=== PATIENT | female | born 1950 | race Caucasian/White ===

== ENCOUNTER 2016-05-25 02:16 | Inpatient (IN) | payer OTHER, MEDICARE ==
[~2016-05-25] VITALS: Ht 167.6 cm; Wt 79.4 kg
[~2016-05-25 02:16] MED LIST: GABAPENTIN600 M1 PO; VICODIN 5-3001 EACH PO
[2016-05-25] MEDS ORDERED: MULTIVITAMINS1 EAC8 PO (06:44)
--- NOTE | 2016-05-25 08:39 | RADIOLOGY REPORT ---
EXAMINATION: XR LUMBAR SPINE CLINICAL INFORMATION: Pain COMPARISON: CT lumbar spine dated 04/30/2016 TECHNIQUE: Lateral view only FINDINGS: Normal overall alignment. Radiodense marker projecting at the spinous process L3 vertebra. Vertebral body heights are preserved. Multilevel degenerative changes with osteophyte formations and facet arthropathy. Decrease intervertebral disc space noted at T12-L1, L2-L3, L4-L5 and L5-S1 levels. Vacuum degeneration noted at L4-L5 and L5-S1 level. Evaluation of the superior endplate S1 vertebra is limited due to underlying bony osteopenia. Moderate facet arthropathy with foraminal narrowing especially evident at L4-L5 and L5-S1 level. IMPRESSION: 1. Linear radiodense marker pointing to the spinous process of L3 vertebra. 2. Multilevel degenerative changes have remained predominantly stable compared to the prior CT scan. It especially evident at L4-L5 and L5-S1 levels with vacuum degeneration and mild foraminal narrowing. 2. There is limited evaluation of the S1 vertebra due to underlying bony osteopenia.
--- NOTE | 2016-05-25 09:05 | RADIOLOGY REPORT ---
EXAMINATION: XR LUMBAR SPINE CLINICAL INFORMATION: Intraoperative COMPARISON: X-ray lumbar spine performed at 8:18 AM TECHNIQUE: Crosstable lateral view FINDINGS: Metallic probe with the tip projecting upon the posterior elements L3 vertebra at the level of L3-L4 intervertebral disc space. Additional metallic calipers with the tip projecting upon the posterior elements L4 vertebra at the level of L4-L5 intervertebral disc space. Metallic retractors also projecting upon the posterior tissues. IMPRESSION: Metallic instruments with the tip projecting upon the posterior elements L3-L4 and L4-L5 levels.
--- NOTE | 2016-05-25 10:31 | Patient Discharge Instructions ---
Discharge Instructions General Discharge Information You were seen/treated for: Low back pain with radiculopathy You had these procedures: Transforaminal lumbar intervertebral body fusion lumbar level four through sacral level I. Lumbar laminectomy L2-3. Watch for these problems: Increasing pain despite the use of pain medication, redness, warmth, or swelling around incision. Drainage of any type from incision. Inability to bear weight on bilateral legs. Loss of sensation to bilateral legs. Inability to urinate or move bowels. Persistent nausea and vomiting, Fever greater than 101.5. Do not soak the wound: Yes No bath, but you may shower: Yes Other wound care: Keep wound clean and dry. Daily dry dressing changes Special Instructions: Where lumbar support brace at all times while walking around. Diet Continue normal diet: Yes Recommended Diet: Regular Additional DIET Information: Advance diet as tolerated Activity Full Activity/No Limits: No Activity Self Limited: Yes Pounds, do NOT lift more than: 5 Activity Limited to: Weight bear as tolerated Additional ACTIVITY Info: No bending or twisting at waist. Where lumbar support at all times while mobilizing. Acute Coronary Syndrome Inclusion Criteria At DC or during hospital stay patient has or had the following: ACS DIAGNOSIS No Discharge Core Measures Meds if any: Prescribed or Continued at Discharge Meds if any: NOT Prescribed or Continued at Discharge Congestive Heart Failure Inclusion Criteria At DC or during hospital stay patient has or had the following: CHF DIAGNOSIS No Discharge Core Measures Meds if any: Prescribed or Continued at Discharge Meds if any: NOT Prescribed or Continued at Discharge Cerebrovascular accident Inclusion Criteria At DC or during hospital stay patient has or had the following: CVA/TIA Diagnosis No Discharge Core Measures Meds if any: Prescribed or Continued at Discharge Meds if any: NOT Prescribed or Continued at Discharge Venous thromboembolism Inclusion Criteria VTE Diagnosis No VTE Type NONE VTE Confirmed by (Test) NONE Discharge Core Measures - Per Current guidelines, there needs to be overlap - treatment for the first 5 days of Warfarin therapy. - If discharged on Warfarin prior to 5 days of - overlap therapy, the patient will need to be - assessed for post discharge needs including - *Post discharge parental anticoagulation - *Warfarin and/or parental anticoagulation education - *Follow up date to check INR post discharge At least 5 days overlap therapy as Inpatient No Meds if any: Prescribed or Continued at Discharge Note: Overlap Therapy is Warfarin and Anticoagulant Meds if any: NOT Prescribed or Continued at Discharge
--- NOTE | 2016-05-25 10:35 | Surgical Discharge Summary ---
Visit Information Visit Dates Admission Date: 05/25/16 Discharge Date: 05/28/2016 History of Present Illness Chief Complaint: Back pain with radiculopathy Surgical History Pertinent Surgical History: non-contributory Review of Systems: See H&P Hospital Course Course Attending Physician: MARLEE AL MD Primary Care Physician: ADALGISA ADAMSONMARLEE [facility] Course: Joslyn was admitted to the hospital on 05/25/2016 for a transforaminal intravertebral lumbar fusion L4 through S1 with a lumbar laminectomy at L2-3. She tolerated the procedure well. She was transferred to a general surgical floor. Her diet was advanced and tolerated. Her vital signs were stable and within normal limits. She voided spontaneously. Her pain was well controlled with oral pain medications. Her neurovascular status remained intact. She was evaluated and treated by physical therapy. Her CHRISTY was removed on 05/28 and her antibiotics were discontinued on that day. She sufferred from post op nausea on pod 2 requiring zofran and tigan which eventually resolved. A cardiac workup on that day including EKG and troponin was negative. She was cleared by PT for discharge to home with services. Allergies: Coded Allergies: No Known Allergies (05/22/16) Significant Procedures: See operative report Disposition Summary Disposition Principal Diagnosis: Spinal stenosis L2-3, degenerative disc disease, spondylosis levels L4 through S1. Additional Diagnosis: None Discharge Disposition: home health services Discharge Instructions General Discharge Information Code Status: Full Code Patient's Diet: Regular, advance as tolerated Patient's Activity: Weight-bear as tolerated on bilateral lower extremities. No bending or twisting at the waist. Lumbar support to be worn at all times while ambulating. Follow-Up Instructions/Appts: Please call or contact Dr. Potts's office to arrange and/or confirm your follow-up appointment. She would like for you to be seen in her office in 1 week from date of surgery. Wear brace at all time while out of bed. Medications at Discharge Discharge Medications: Continue taking these medications: Gabapentin (Gabapentin) 600 MG TABLET 1 Tablet ORAL THREE TIMES DAILY Comments: LAST GIVEN: 05/28/16 2 PM Hydrocodone/Acetaminophen (Vicodin 5-300 MG Tablet) 5 MG-300 MG TABLET 1 Tablet ORAL EVERY 4-6 HOURS as needed for PAIN Multivitamin (Multivitamins) 1 EACH CAPSULE 1 Tablet ORAL DAILY Comments: NOT GIVEN Copies To: MIKAELA ADAMSON,MARLEE Pedro
--- NOTE | 2016-05-25 12:56 | Operative Report ---
Operative/Inv Procedure Report Surgery Date: 05/25/16 Name of Procedure: L2-3 laminectomies bilateral. L4 5 L5-S1 complete laminectomies, complete foraminotomies, osteotomies. L4 5 TLIF, L5-S1 TLIF. Insertion of L4 5 10 x 28 mm tritanium cage. Insertion of L5-S1 10 x 28 mm tritanium cage. L4 5 L5-S1 posterior lateral arthrodesis with autologous bone graft. L4 5 L5-S1 posterior lateral segmental instrumentation utilizing naida titanium stereotactically. Pre-Operative Diagnosis: Lumbar stenosis degenerative lumbar disc disease Post-Operative Diagnosis: Same Estimated Blood Loss: 450cc Surgeon/Hardness Tester: CARMINE CONNOR MD and MARLEE AL MD Anesthesia: general endotracheal tube Operative/Procedure Note Note: Patient was brought to the operating room and after undergoing endotracheal intubation, catheterization Venodyne's were placed for both lower extremities. She was placed on a Jose Alberto frame flat all bony prominences well-padded. The back was washed with alcohol and Betadine x-ray was used for localization and it was reporting a ChloraPrep solution draped in usual sterile fashion. An incision was made from the L2 vertebra down through the S1 and developed down through the underlying subcutaneous teeniest tissues. All of the facet joints bilaterally. This point x-ray was used for confirmation. At the L2-3 working with a Masonic's bone scalpel the lamina was performed by doing bilateral hemilaminectomies and connected them in the midline, leaving the interspinous and supraspinous ligaments intact and the spinous process intact. Processes was undermined such that the laminectomy was bilateral and wide. At this point attention was turned to the L4 5 S1 decompression by performing with the Masonic 's bone scalpel, laminectomies inferior L4 bilaterally L5 completely and then bilateral foraminotomies and osteotomies. The foramina were cleared away exposing the underlying nerve roots freely. Bone was harvested and morselized for later usage in the arthrodesis. At this point working with 11 blade and the L4 5 and the L5-S1 disc space with and was entered. The discs were now removed with a combination of straight and curved rongeurs and straight and curved curettes. The cartilaginous endplates were now removed both surfaces. The bony endplates were partially decorticated. At the L4 5 level bone graft was packed into the interspace at the L5-S1 level bone was packed into the interspace as well. A 10 x 28 mm titanium cage was centrally packed with autologous bone graft and gently tapped across the midline at the L4 5 level. At the L5-S1 level similarly a cage was placed ileu-ec-ooelt 10 x 28 mm, tRitanium, and placed across the midline. Cage was centrally packed with autologous bone graft. Copious amounts of bacitracin irrigation was now used. The transverse processes at the L4-L5 and the ala of S1 were now cleared of all muscular attachments and decorticated. Bone graft was placed over the decorticated surfaces bilaterally. A stereotactic post was placed in the right iliac crest and the stereotactic coordinates were now obtained. The pedicle screws were now placed under stereotactic guidance. L4 screws were 6.5 mm diameter by 45MM naida titanium screws all throughout. The L5 screw 6.5 x 40 mm and the S1 screw 6.5 x 35 mm. Screws were stimulated and found to stimulate above 40 mA. This point still rods were placed and connected to the polyaxial screws under compression. The wound was copiously irrigated with bacitracin irrigation. Vancomycin powder was placed into the wound. A drain was placed and removed through separate stab incision superiorly. The paraspinal muscles and fascia were reapproximated utilizing interrupted 0 Vicryls. 2-0 Vicryl subcutaneous teeniest tissues and eugene for the skin. Patient was taken With the recovery room having tolerated procedure well
--- NOTE | 2016-05-25 13:31 | Operative Report ---
Operative/Inv Procedure Report Surgery Date: 05/25/16 Name of Procedure: 1. Bilateral L2-3 decompressive laminotomies 2. Bilateral L4, L5 pars osteotomies 3. L4 5, L5-S1 far lateral discectomies 4. L4 5, L5-S1 TLIF with Clem tritanium interbody cages, autograft, iliac crest bone marrow aspirate 5. Segmental posterior lateral arthrodesis L4-S1 with Maxwell Jennifer 3 pedicle screws and rods, autograft, iliac crest bone marrow aspirate 6. Right posterior iliac crest bone marrow aspirate 7. O arm neuro navigation Pre-Operative Diagnosis: 1. L2-3 stenosis 2. L4 5, L5-S1 advanced degenerative disc disease, spondylosis, high-grade foraminal stenosis 3. History of previous left L4 5, L5-S1 laminectomies Post-Operative Diagnosis: Same Estimated Blood Loss: 1000cc Surgeon/Magazine Journalist: MIKAELA ADAMSON,Jose D Alexander M.D. Anesthesia: general endotracheal tube Monitors: Neurophysiologic monitoring IV Fluids: 3500 mL IV fluids, 550 mL Cell Saver Implants: Maxwell Urine Output: 800 mL via Gonzalez Drains: Medium CHRISTY Specimens: L4 5, L5-S1 disc material Complications: None Condition: Stable with improved distal right S1 sensory latencies at and of case compared with preop baseline Operative Indication: Patient is a 58-year-old woman with a protracted history of bilateral lower extremity pain. Status post previous laminectomies in the past and most recently has had intractable right L5 radicular symptoms despite prolonged conservative treatment. Judging shows a moderate to early severe central stenosis at L2-3 secondary to hypertrophic facet and ligamentous changes. At L4 5 and L5-S1 she has postoperative changes, advanced degenerative disc disease with severe lateral recess and foraminal stenosis which is prominent bilaterally at L4 5 on the right at L5-S1. At L5-S1, patient is noted to have a significant right S1 instrument at the level of the neural foramen. She now presents for operative decompression as well as stabilization from L4 to S1 because of the need for total facetectomies. Operative/Procedure Note Note: Patient was taken to the operating room. After appropriate patient identification, neurophysiologic monitoring leads were placed and baseline recordings obtained. Patient underwent the smooth induction of general endotracheal anesthesia without incident. With tube secured, Gonzalez catheter was sterilely inserted. DVT prophylaxis utilized throughout the case. Patient given 2 g IV Preoperative Prophylaxis. Patient then carefully turned to the prone position on the Jose Alberto table taking care to ensure all pressure points well-padded. Lumbar region low back was widely prepped and draped usual sterile fashion using povidone solution. The previous skin incision was appreciated. A vertical midline skin incision was marked and infiltrated with local anesthetic. Localizing x-ray was obtained officially in place and confirmed the level of L3 4 in the middle of our planned incision. Skin incision made with a 10 blade knife. Dissection carried down with the Bovie to the lumbodorsal fascia. Fascia incised in the midline and a subperiosteal dissection lumbar paraspinal muscles performed bilaterally exposing spinous processes lamina and facet joints from L2 to the sacrum. Troy 4 elevator placed under the presumed L3 lamina and intraoperative lateral x-ray obtained and confirmed this to be at the level of L3 4. With correct levels verified, we then proceeded to expose the transverse processes of L4, L5, sacral alar bilaterally which were decorticated with a high-speed drill. Care was taken to maintain the facet joint capsules of L2-3 and L3 4. We focused our attention first L2-3. Using the bone scalpel, bilateral L2-3 laminectomies were performed medial facetectomies. Underlying ligamentum flavum was carefully elevated and strip with Kerrison rongeurs. We worked under the spinous process across the midline to decompress the lateral recesses bilaterally carefully maintaining the spinous processes intact and therefore all of the attaching ligaments. Once the decompression at this level was accomplished, a pledget of thrombin-soaked Gelfoam was used to cover the dura and we focused our attention to L4 5 and L5-S1. First, through a small stab incision over the right posterior iliac crest, 15 mL of iliac crest bone marrow aspirate was obtained through a Jamshidi needle and to add to the decompression autograft. At the lower levels, bilateral pars osteotomies of L4 and L5 were performed with the bone scalpel. Complete facetectomies were completed using the bone scalpel and Kerrison rongeurs skeletonizing the pedicles of L4, L5, and S1 bilaterally. Marked hypertrophy of the facet joints was noted to tickly on the patient's more symptomatically right side and especially at L5-S1. The exiting and traversing roots of L4-L5 and S1 were widely decompressed and complete foraminotomies were performed bilaterally with particular attention to the patient's most symptomatically right side. All bone was saved, morcellated, and passed off to the back table and added to the iliac crest bone marrow aspirate. With the decompression completed, we then focused our attention to the interbody arthrodesis. Working at L4 5 from the patient's right side, the dural sac was gently mobilized to the midline. A cuff of venous epidural tissue was coagulated and divided. An annulotomy was performed with an 11 blade knife. Discectomy was completed with small straight and angled curettes and pituitary rongeurs, disc space sharon and rasps until all the cartilaginous endplate was removed. After appropriate trials, a by 28 x 6 lordotic tritanium cage was selected. Morcellated autograft was packed into the anterior disc space. The cage was filled with autograft and gently impacted into the L4 5 disc space under direct observation and countersunk. With the L4 5 cage in position, we then focused our attention to L5-S1. At this level, we worked from the patient's left side given significant collapse of the disc on the right. Ashen and with the dura protected, discectomy was performed at L5-S1 with the disc space sharon and rasps until all the cartilaginous endplate was removed. After appropriate trials, a second 10 x 28 x 60 lordotic Clem tritanium cage was selected, filled with morcellated autograft. Autograft was also packed into the anterior disc space. The cage was then impacted into L5-S1 and countersunk by approximately 2 mm and its position confirmed visually noted to be excellent. With the cages in position, we then proceeded with a posterior lateral arthrodesis and placement of the pedicle screw and jennifer its rotation. The O arm was brought into play. Reference AP and lateral x-rays were obtained followed by a spin. Reformats were completed and confirmed. Oozing the O arm guidance, the entry points for pedicle screws at L4, L5, and S1 were selected at the junction of the pars transverse process and facet. Budget Examiner holes were drilled. The pedicles were traversed with a gearshift. The holes were sounded with a ball-tipped probe, tapped, resounded and screws placed. At L4, 6.5 x 45 mm screws were placed bilaterally, at L5, 6.5 x 40 mm screws bilaterally and at S1, 6.5 x 35 mm screws placed bilaterally at once all screws were in position, they were stimulated with thresholds greater than 30 mA at all 6 locations. The O arm was then brought back into play and a second spin obtained and confirmed excellent position of all the instrumentation and a wide decompression.. The morcellated autograft from the decompression was packed over the transverse processes from L4 to the sacral alar bilaterally. 60 mm rods were top loaded into the screws and locking caps placed. The screws were finally tightened with an antitorque device. The wound was copiously irrigated with the sterile saline. 1 g of IV vancomycin powder was used to coat all of the cut issue surfaces. 10 mL of long-acting local anesthetic was infiltrated into the paraspinal muscle and wound closure was begun. Medium CHRISTY drain placed into the wound and secured to the skin with a 2-0 nylon suture. The deep muscle was reapproximated interrupted 0 Vicryl suture. The fascia was closed with interrupted 0 Vicryl suture. Subcutaneous tissue was irrigated and closed in layers with interrupted 2-0 Vicryl suture and the skin was closed with eugene. The wounds clean and dried. Bacitracin and sterile occlusive dressing was placed. A small stab incision at the right hip was closed with interrupted 2-0 Vicryl in subcutaneous tissue and eugene in the skin and a clean dry dressing placed. Patient was returned to the supine position, awakened extubated and taken to PACU in stable condition. She was noted to be moving all 4 extremities at the completion of the case. All sponge, needle, and instrument counts were correct at the completion of the procedure 3. Neurophysiologic monitoring was improved at the end of the case compared to preop baseline.
--- NOTE | 2016-05-25 14:31 | RADIOLOGY REPORT ---
EXAMINATION: XR LUMBOSACRAL SPINE CLINICAL INFORMATION: L2-L3, L4-L5, L5-S1 fusion. COMPARISON: Lumbar spine films dated 05/25/2016. TECHNIQUE: 4 views of the lumbosacral spine were obtained. Fluoroscopic images were obtained and 2 forearm specimens were performed and are archived in PACS. FLUOROSCOPY TIME: 5.24 seconds. FINDINGS: Serial images demonstrate performance of posterior spinal decompression and fusion extending from the nipple for 5 to the L5-S1 level with intervertebral disc spacer placement. Alignment appears near-anatomic on the images submitted. Please refer to operative notes for further detail. IMPRESSION: Posterior spinal decompression and fusion in lower lumbar spine near anatomic alignment seen.
--- NOTE | 2016-05-25 15:24 | PN- Neurosurgical ---
Subjective Subjective: Patient reporting discomfort but state she feels better if she is able to move legs. Denies chest pain, shortness of breath and difficulty breathing. Denies nausea and vomitting. Has not been mobilized. Has dubon catheter in place. 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 Motor 5/5 in plantar and dorsi flexion. Skin warm and well perfused. DP Pulses palpable, ALPS in place. Bilateral calves soft. Surgical site: Dressing dry and intact. Drain holding suction, approximately 200 cc of sanguinous output postoperatively. Assessment/Plan Assessment/Plan This is a 66 year old female, POD 0, s/p Lum Rick L2-3, TLIF L4-5 for spinal stenosis and degenerative disc disease. -dPCA for pain -Continue IV fluids -Advance diet as tolerated -Ancef for abx ppx q8hr while drain in place -OOB tomorrow with PT, lumbar brace on while ambulating -Hep SQ q8 to start tomorrow -Toradol 15 q8 okay prn -Valium as needed for spasm -Will d/w Dr. Desir Core Measures/Miscellaneous Venous Thromboembolism VTE Risk Factors: Age > 40 VTE Contraindications: No Contraindications VTE Diagnosis: No Beta Kennedy Is Beta Kennedy a Home Med? No Antibiotics Is Patient on Antibiotics? Yes If Yes: prophylaxis
[2016-05-25 16:20] VITALS: BP 116/64
[2016-05-25 18:01] VITALS: BP 124/80
[2016-05-25 18:20] VITALS: BP 124/80
[2016-05-25 20:00] VITALS: BP 124/80
[2016-05-25 20:05] VITALS: BP 124/78
[2016-05-25 22:00] VITALS: BP 124/70; BP 124/80
[2016-05-26] VITALS (10 sets, daily range): BP systolic 112–120; BP diastolic 60–80
--- NOTE | 2016-05-26 07:19 | PN- Neurosurgical ---
Subjective Subjective: Pt c/o incisional LBP Objective Vital Signs and I&Os Vital Signs Date Time Temp Pulse Resp B/P Pulse O2 O2 Flow FiO2 Ox Delivery Rate 05/26 0616 98.4 92 20 120/62 94 Room Air 05/26 0416 99.0 94 20 114/66 94 Room Air 05/26 0400 99.0 94 18 114/66 05/26 0220 99.0 95 20 112/66 94 Room Air 05/26 0200 99.0 95 18 112/66 05/26 0005 98.6 93 20 120/70 94 Room Air 05/26 0000 98.6 93 18 120/70 05/25 2200 98.7 94 18 124/80 05/25 2200 98.7 91 20 124/70 99 05/25 2004 98.7 94 18 124/78 98 05/26 1999 98.7 94 18 124/80 05/25 1820 97.9 91 18 124/80 05/25 1801 97.9 91 18 124/80 97 Nasal Cannula 05/25 1620 98.2 94 18 116/64 05/25 1620 98 Nasal 2.0L Cannula 05/25 1620 98.1 94 18 64 98 Nasal 2.0L Cannula Intake & Output 05/26 0800 05/26 0000 05/25 1600 05/25 0800 05/25 0000 05/24 1600 Intake Total 640 200 Output Total 205 605 Balance 435 -405 Intake, IV 640 Intake, Oral 200 Output, 205 180 Drainage Output, Urine 425 Patient 79.379 kg Weight Physical Exam: Pt awake and alert AF, VSS Drain with 180cc last shift serosanguinous incision is c,d,i flat neuro exam bilat LE intact motor and sensory sl bilat edema of feet, no calf tenderness using IS well abd soft and NT, nadeem clears Current Medications: Current Medications Sig/Tesha Start time Last Medication Dose Route Stop Time Status Admin Acetaminophen 650 MG Q4P PRN 05/25 1415 AC PO Bisacodyl 10 MG DAILY PRN 05/25 1415 AC UT Cefazolin Sodium 2,000 MG Q8H 05/26 1999 AC 05/26 Sodium Chloride 100 ML IV 05/28 1759 0419 Cefazolin Sodium 2,000 MG ONCE 05/25 0000 DC IV 05/25 2359 Diazepam 5 MG Q8P PRN 05/25 1415 AC PO Docusate Sodium 100 MG TID 05/25 1600 AC 05/25 PO 2048 Gabapentin 600 MG Q8 05/25 1400 AC 05/26 PO 0620 Heparin Sodium 5,000 UNIT Q8 05/26 0600 AC 05/26 (Porcine) SC 0620 Hydromorphone HCl 50 MG Q24H PRN 05/25 1400 AC Sodium Chloride 45 ML IV Hydromorphone HCl 2 MG .STK-MED ONE 05/25 1339 DC IM 05/25 1340 Hydromorphone HCl 2 MG .STK-MED ONE 05/25 1312 DC IM 05/25 1313 Ketorolac 15 MG Q6P PRN 05/25 1415 AC Tromethamine IV Meperidine HCl 50 MG .STK-MED ONE 05/25 1313 DC IM 05/25 1314 Ondansetron HCl 4 MG Q6P PRN 05/25 1415 AC IV Oxycodone/ 2 TAB Q4P PRN 05/26 0800 AC Acetaminophen PO Remifentanil 2 MG .STK-MED ONE 05/25 1218 DC IV 05/25 1219 Senna 187 MG AT BEDTIME NEED.. 05/26 2200 AC PO Sodium Chloride 1,000 ML Q12H 05/25 1400 AC 05/26 IV 05/26 1359 0620 Trimethobenzamide HCl 200 MG Q6P PRN 05/25 1415 AC IM Zolpidem Tartrate 2.5 MG AT BEDTIME NEED.. 05/25 1415 AC PO Assessment/Plan Assessment/Plan Pt POD1 s/p L2/3 lami, L4/5 and L5/S1 TLIF and doing well. Neurologically intact. Incisional LBP is major complaint at this time. 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 No Antibiotics Is Patient on Antibiotics? Yes If Yes: prophylaxis Attending MD Review Statement Attending Statement Attending MD Statement: examined this patient, discuss w/resident/PA/LOMBARDI DEVELOPER, discussed w/nursing
[2016-05-26 10:58] LABS: ABSOLUTE BASOPHIL COUNT 0 /CUMM (0.0-0.2); ABSOLUTE EOSINOPHIL COUNT 0 /CUMM (0.0-0.7); ABSOLUTE GRANULOCYTE CT 11.2 /CUMM (1.4-6.5); ABSOLUTE LYMPH COUNT 1.1 /CUMM (1.2-3.4); ABSOLUTE MONOCYTE COUNT 0.6 /CUMM (0.10-0.60); BASOPHIL % 0.3 % (0.0-2.0); EOSINOPHIL % 0 % (0-5); HEMATOCRIT 35.9 % (37-47); MEAN CORPUSCULAR HGB 31.4 PG (27.0-31.0); MEAN CORPUSCULAR VOLUME 92.4 FL (81.0-99.0); MEAN PLATELET VOLUME 7.4 FL (7.4-10.4); RBC DISTRIBUTION WIDTH 13.1 % (11.5-14.5); RED BLOOD CELL CT 3.88 /CUMM (4.20-5.40); WHITE BLOOD CELL COUNT 12.9 /CUMM (4.8-10.8)
[2016-05-26 11:15] LABS: GRANULOCYTE % 86.6 % (42.2-75.2); PLATELET COUNT 197 /CUMM (130-400)
[2016-05-27 06:47] VITALS: BP 120/60
--- NOTE | 2016-05-27 08:25 | PN- Neurosurgical ---
Subjective Subjective: The patient seen this morning postoperatively day #2. She reports that her pain is under adequate control and has no other complaints at the current time. Objective Vital Signs and I&Os Vital Signs Date Time Temp Pulse Resp B/P B/P Pulse O2 O2 Flow FiO2 Mean Ox Delivery Rate 05/27 0647 98.1 71 21 120/60 94 Room Air 05/26 2326 98.7 83 20 120/70 94 Room Air 05/26 2008 Room Air Room Air 05/26 1354 Room Air 2.0L 05/26 1336 98.3 78 18 118/60 92 Intake & Output 05/27 1600 05/27 0800 05/27 0000 05/26 1600 05/26 0800 05/26 0000 Intake Total 100 900 640 200 Output Total 660 80 205 605 Balance -560 820 435 -405 Intake, IV 100 200 640 Intake, Oral 700 200 Output, 60 80 205 180 Drainage Output, Urine 600 425 Patient 175 lb Weight Physical Exam: Gen.: Alert and in no obvious distress Skin: Warm and dry Extremities: Patient moves all 4 extremities with equal strength. Gross motor and sensory are intact. Bilateral lower extremities are warm without calf tenderness or significant edema. Back: Surgical dressing is blood-tinged but otherwise intact there is a CHRISTY 1 holding suction with serosanguineous drainage in the bulb. Assessment/Plan Assessment/Plan Assessment: 66-year-old female status post lumbar laminectomy L2 through L3/tlif L4-S1 postoperative day #2. The patient is progressing as expected and her pain is under adequate control. Plan: Out of bed and ambulate using brace Continue current pain regiment GI and DVT prophylaxis Keep CHRISTY to self suction until output is decreased Continue antibiotics until CHRISTY is removed Core Measures/Miscellaneous Venous Thromboembolism VTE Risk Factors: Age > 40 VTE Contraindications: No Contraindications VTE Diagnosis: No Beta Kennedy Is Beta Kennedy a Home Med? No Antibiotics Is Patient on Antibiotics? Yes If Yes: prophylaxis
--- NOTE | 2016-05-27 08:34 | PN- Neurosurgical ---
Subjective Subjective: Pt doing well. c/o incisional LBP, no leg pain Objective Vital Signs and I&Os Vital Signs Date Time Temp Pulse Resp B/P B/P Pulse O2 O2 Flow FiO2 Mean Ox Delivery Rate 05/27 0647 98.1 71 21 120/60 94 Room Air 05/26 2326 98.7 83 20 120/70 94 Room Air 05/26 2008 Room Air Room Air 05/26 1354 Room Air 2.0L 05/26 1336 98.3 78 18 118/60 92 Intake & Output 05/27 1600 05/27 0800 05/27 0000 05/26 1600 05/26 0800 05/26 0000 Intake Total 100 900 640 200 Output Total 660 80 205 605 Balance -560 820 435 -405 Intake, IV 100 200 640 Intake, Oral 700 200 Output, 60 80 205 180 Drainage Output, Urine 600 425 Patient 79.379 kg Weight Physical Exam: Pt sitting in chair. nadeem po well. AF, VSS CHRISTY with 60cc last shift serosanguinous dc motor with weakness left EHL, otherwise good power bilat LE sensory with stable bilat distal LE hypesthesias, chronic incision is c,d,i flat ambulated on own with brace this am voiding on own Physical Exam Neck: meningeal signs Current Medications: Current Medications Sig/Tesha Start time Last Medication Dose Route Stop Time Status Admin Acetaminophen 650 MG Q4P PRN 05/25 1415 AC PO Bisacodyl 10 MG DAILY PRN 05/25 1415 AC TX Cefazolin Sodium 2,000 MG Q8H 05/25 2000 AC 05/27 Sodium Chloride 100 ML IV 05/28 1759 0400 Diazepam 5 MG Q8P PRN 05/25 1415 AC PO Diphenhydramine HCl 25 MG ONCE ONE 05/26 1145 DC 05/26 IV 05/26 1146 1238 Docusate Sodium 100 MG TID 05/25 1600 AC 05/26 PO 2042 Gabapentin 600 MG Q8 05/25 1400 AC 05/27 PO 0703 Heparin Sodium 5,000 UNIT Q8 05/26 0600 AC 05/27 (Porcine) SC 0705 Hydromorphone HCl 1 MG Q2-3 HRS NEEDED.. 05/26 0845 AC 05/26 IV 0935 Hydromorphone HCl 50 MG Q24H PRN 05/25 1400 DC Sodium Chloride 45 ML IV Ketorolac 15 MG Q8 05/26 1400 AC 05/27 [place] 0705 Ondansetron HCl 4 MG Q6P PRN 05/25 1415 AC 05/26 IV 0935 Oxycodone/ 2 TAB Q4P PRN 05/26 0800 AC Acetaminophen PO Patient Medication 1 ED .STK-MED ONE 05/26 1429 DC Teaching ED 05/26 1430 Senna 187 MG AT BEDTIME NEED.. 05/26 2200 AC PO Sodium Chloride 1,000 ML Q12H 05/25 1400 DC 05/26 IV 05/26 1359 0620 Trimethobenzamide HCl 200 MG Q6P PRN 05/25 1415 AC 05/26 IM 1038 Zolpidem Tartrate 2.5 MG AT BEDTIME NEED.. 05/25 1415 AC PO Results Last 48 Hours of Labs: Laboratory Tests 05/26 1048 Hematology CBC w Diff NO MAN DIFF REQ WBC (4.8 - 10.8 /CUMM) 12.9 H RBC (4.20 - 5.40 /CUMM) 3.88 L Hgb (12.0 - 16.0 G/DL) 12.2 Hct (37 - 47 %) 35.9 L MCV (81.0 - 99.0 FL) 92.4 MCH (27.0 - 31.0 PG) 31.4 H RDW (11.5 - 14.5 %) 13.1 Plt Count (130 - 400 /CUMM) 197 MPV (7.4 - 10.4 FL) 7.4 Gran % (42.2 - 75.2 %) 86.6 H Lymphocytes % (20.5 - 51.1 %) 8.4 L Monocytes % (1.7 - 9.3 %) 4.7 Eosinophils % (0 - 5 %) 0 Basophils % (0.0 - 2.0 %) 0.3 Absolute Granulocytes (1.4 - 6.5 /CUMM) 11.2 H Absolute Lymphocytes (1.2 - 3.4 /CUMM) 1.1 L Absolute Monocytes (0.10 - 0.60 /CUMM) 0.6 Absolute Eosinophils (0.0 - 0.7 /CUMM) 0 Absolute Basophils (0.0 - 0.2 /CUMM) 0 PUBS MCHC (33.0 - 37.0 G/DL) 34.0 Assessment/Plan Assessment/Plan Pt POD2 s/p multilevel lumbar decompression and fusion and doing well. Plan: -OOB -dc planning for STR -dc CHRISTY when less than 50cc per shift, dc abx at that time -brace for OOB -IS use -DVT prophylaxis Core Measures/Miscellaneous Venous Thromboembolism VTE Risk Factors: Age > 40 VTE Contraindications: No Contraindications VTE Diagnosis: No Beta Kennedy Is Beta Kennedy a Home Med? No Antibiotics Is Patient on Antibiotics? Yes If Yes: prophylaxis Attending MD Review Statement Attending Statement Attending MD Statement: examined this patient, discuss w/resident/PA/HOTEL RESERVATION AGENT
[2016-05-27 23:25] VITALS: BP 110/70
[2016-05-28 06:39] VITALS: BP 120/60
--- NOTE | 2016-05-28 08:01 | PN- Neurosurgical ---
Subjective Subjective: Pt with nausea this am after toradol injection. Received zofran. denies CP, SOB, vomiting Objective Vital Signs and I&Os Vital Signs Date Time Temp Pulse Resp B/P B/P Pulse O2 O2 Flow FiO2 Mean Ox Delivery Rate 05/28 0639 98.3 80 20 120/60 96 Room Air 05/27 2325 98.5 82 20 110/70 99 Room Air Intake & Output 05/28 0805/28 0000 05/27 1600 05/27 0800 05/27 0000 05/26 1600 Intake Total 922 976 6522 250 100 900 Output Total 660 975 80 660 80 Balance 200 170 125 170 -560 820 Intake, IV 150 130 100 150 100 200 Intake, Oral 50 700 1000 100 700 Number 0 0 Bowel Movements Output, 60 75 80 60 80 Drainage Output, Urine 600 900 600 Physical Exam: Pt did well yesterday. AF, VSS sitting in recliner nadeem po well yesterday though deferred breakfast now due to nausea CHRISTY with 60cc last shift yest, min serosanguinous dc in drain at present ambulating well with brace, voiding on own abd soft no LE edema or calf tenderness Current Medications: Current Medications Sig/Tesha Start time Last Medication Dose Route Stop Time Status Admin Acetaminophen 650 MG Q4P PRN 05/25 1415 AC PO Bisacodyl 10 MG DAILY PRN 05/25 1415 AC CO Cefazolin Sodium 2,000 MG Q8H 05/25 2000 AC 05/28 Sodium Chloride 100 ML IV 05/28 1759 0348 Diazepam 5 MG Q8P PRN 05/25 1415 AC PO Docusate Sodium 100 MG TID 05/25 1600 AC 05/27 PO 205 Gabapentin 600 MG Q8 05/25 1400 AC 05/28 PO 0654 Heparin Sodium 5,000 UNIT Q8 05/26 0600 AC 05/28 (Porcine) SC 0654 Hydromorphone HCl 1 MG Q2-3 HRS NEEDED.. 05/26 0845 DC 05/26 IV 0935 Ketorolac 15 MG Q8 05/26 1400 DC 05/28 Tromethamine IV 0653 Ondansetron HCl 4 MG Q6P PRN 05/25 1415 AC 05/28 IV 0719 Oxycodone/ 2 TAB Q4P PRN 05/26 0800 AC 05/27 Acetaminophen PO 2049 Senna 187 MG AT BEDTIME 05/27 2199 AC 05/27 PO 9 Senna 187 MG AT BEDTIME NEED.. 05/26 2200 DC PO Trimethobenzamide HCl 200 MG Q6P PRN 05/25 1415 AC 05/26 IM 1038 Zolpidem Tartrate 2.5 MG AT BEDTIME NEED.. 05/25 141 AC PO Results Last 48 Hours of Labs: Laboratory Tests 05/26 1048 Hematology CBC w Diff NO MAN DIFF REQ WBC (4.8 - 10.8 /CUMM) 12.9 H RBC (4.20 - 5.40 /CUMM) 3.88 L Hgb (12.0 - 16.0 G/DL) 12.2 Hct (37 - 47 %) 35.9 L MCV (81.0 - 99.0 FL) 92.4 MCH (27.0 - 31.0 PG) 31.4 H RDW (11.5 - 14.5 %) 13.1 Plt Count (130 - 400 /CUMM) 197 MPV (7.4 - 10.4 FL) 7.4 Gran % (42.2 - 75.2 %) 86.6 H Lymphocytes % (20.5 - 51.1 %) 8.4 L Monocytes % (1.7 - 9.3 %) 4.7 Eosinophils % (0 - 5 %) 0 Basophils % (0.0 - 2.0 %) 0.3 Absolute Granulocytes (1.4 - 6.5 /CUMM) 11.2 H Absolute Lymphocytes (1.2 - 3.4 /CUMM) 1.1 L Absolute Monocytes (0.10 - 0.60 /CUMM) 0.6 Absolute Eosinophils (0.0 - 0.7 /CUMM) 0 Absolute Basophils (0.0 - 0.2 /CUMM) 0 PUBS MCHC (33.0 - 37.0 G/DL) 34.0 Assessment/Plan Assessment/Plan Pt POD3 s/p multilevel lumbar decompression and fusion. Nausea this am she attributes to toradol injection. Otherwise doing well and moblizing. Plan: -dc toradol, dc iv dilaudid -po percocet which pt feels is better tolerated and effective -dc CHRISTY, abx -OK to shower later if feeling better and occlusive dressing in place -if stable and nausea improved, ok to dc to STR later today -will need 2 week fu for wound check, [place] -if nausea persists, will obtain EKG, lytes and reassess Core Measures/Miscellaneous Venous Thromboembolism VTE Risk Factors: Age > 40 VTE Contraindications: No Contraindications VTE Diagnosis: No Beta Kennedy Is Beta Kennedy a Home Med? No Antibiotics Is Patient on Antibiotics? Yes If Yes: prophylaxis
[2016-05-28 09:03] VITALS: BP 126/70
[2016-05-28 11:50] LABS: ABSOLUTE BASOPHIL COUNT 0 /CUMM (0.0-0.2); ABSOLUTE EOSINOPHIL COUNT 0.1 /CUMM (0.0-0.7); ABSOLUTE GRANULOCYTE CT 5.9 /CUMM (1.4-6.5); ABSOLUTE LYMPH COUNT 1.1 /CUMM (1.2-3.4); ABSOLUTE MONOCYTE COUNT 0.4 /CUMM (0.10-0.60); BASOPHIL % 0.3 % (0.0-2.0); EOSINOPHIL % 0.7 % (0-5); GRANULOCYTE % 78.7 % (42.2-75.2); HEMATOCRIT 32.2 % (37-47); MEAN CORPUSCULAR HGB 31.6 PG (27.0-31.0); MEAN CORPUSCULAR HGB CONC 34.4 G/DL (33.0-37.0); MEAN CORPUSCULAR VOLUME 91.9 FL (81.0-99.0); MEAN PLATELET VOLUME 7.8 FL (7.4-10.4); PLATELET COUNT 166 /CUMM (130-400); RBC DISTRIBUTION WIDTH 12.9 % (11.5-14.5); WHITE BLOOD CELL COUNT 7.6 /CUMM (4.8-10.8)
[2016-05-28 12:30] VITALS: BP 130/70
[2016-05-28 14:27] VITALS: BP 120/80
[2016-05-28] MEDS ORDERED: PERCOCET 5-3251 EACH PO (16:28)
== END 2016-05-28 17:40 | disposition home health service (06) | DRG 460 ==
LOC: ENRESERVTM → ENRESERVDT → SDA 02:16 → 2NA 02:16 → ENPENDDIS 05-28 16:43 → 2NA 05-28 17:40
PROVIDERS: Physician Assistant; Physician Assistant Surgical; ADMIT Neurological Surgery
PROC: 07DR3ZZ Extraction of Iliac Bone Marrow, Percutaneous Approach (ICD-10-PCS; principal; 2016-05-25)
PROC: 0SG30AJ Fusion of Lumbosacral Joint with Interbody Fusion Device, Posterior Approach, Anterior Column, Open Approach (ICD-10-PCS; principal; 2016-05-25)
PROC: 01NB0ZZ Release Lumbar Nerve, Open Approach (ICD-10-PCS; principal; 2016-05-25)
PROC: 0SG0071 Fusion of Lumbar Vertebral Joint with Autologous Tissue Substitute, Posterior Approach, Posterior Column, Open Approach (ICD-10-PCS; principal; 2016-05-25)
PROC: 0SG3071 Fusion of Lumbosacral Joint with Autologous Tissue Substitute, Posterior Approach, Posterior Column, Open Approach (ICD-10-PCS; principal; 2016-05-25)
PROC: 0SB20ZZ Excision of Lumbar Vertebral Disc, Open Approach (ICD-10-PCS; principal; 2016-05-25)
PROC: 0SG00AJ Fusion of Lumbar Vertebral Joint with Interbody Fusion Device, Posterior Approach, Anterior Column, Open Approach (ICD-10-PCS; principal; 2016-05-25)
PROC: 0SB40ZZ Excision of Lumbosacral Disc, Open Approach (ICD-10-PCS; principal; 2016-05-25)
PROC: 4A11X4G Monitoring of Peripheral Nervous Electrical Activity, Intraoperative, External Approach (ICD-10-PCS; principal; 2016-05-25)
DX: M48.06 Spinal stenosis, lumbar region (principal); E78.2 Mixed hyperlipidemia; M51.36 Other intervertebral disc degeneration, lumbar region; M51.37 Other intervertebral disc degeneration, lumbosacral region; M48.07 Spinal stenosis, lumbosacral region; M47.896 Other spondylosis, lumbar region; K58.9 Irritable bowel syndrome, unspecified; M47.897 Other spondylosis, lumbosacral region; Z85.3 Personal history of malignant neoplasm of breast
CPT/HCPCS: 2NASP; 36415; 72020; 72100; 82436; 87086; 88304; 93005; 93010; 97110-GO; 97116-GO; 97161-GP; 97530-GO; C9290; J0690; J1170; J1200; J1644; J2405; J3250; J3370